=== PATIENT | female | born 1970 | race Caucasian/White ===

== ENCOUNTER 2022-09-10 08:44 | Day surgery (SDC) | payer OTHER ==
[~2022-09-10] VITALS: Ht 170.2 cm; Wt 90.1 kg
[2022-09-10] MEDS ORDERED: PRINIVIL5 MG PO (09:20)
[2022-09-10] MEDS ORDERED: ASPIRIN E.C. 8181 MG PO (09:20)
[2022-09-10] MEDS ORDERED: SAXENDA6 MG/ML SQ (09:22)
[2022-09-10] MEDS ORDERED: TYLENOL 500MG500 MG PO (09:22)
[2022-09-10 11:42] VITALS: BP 138/76; PULSE 72; TEMP 98.1
[2022-09-10] MEDS ORDERED: NORCO 325 MG-51 TAB PO (12:55)
[2022-09-10 13:30] VITALS: BP 130/64; PULSE 72; TEMP 97.6
[2022-09-10 13:45] VITALS: BP 132/70; PULSE 85
[2022-09-10 14:00] VITALS: BP 136/72; PULSE 65
--- NOTE | 2022-09-10 14:34 | NUR ---
1330-PATIENT ARRIVED VIA CART, REPORT OBTAINED FROM [facility]. PATIENT DROWSY, BUT ANSWERS QUESTIONS APPROPRIATELY. DENIES NAUSEA, RATES PAIN 4/10 TO UPPER ABDOMEN. VITAL SIGNS TAKEN, VSS. PATIENT'S SPOUSE BROUGHT TO BEDSIDE. 1335-PATIENT GIVEN PO FLUIDS AND SNACK, TOLERATING PO INTAKE WELL. DENIES NAUSEA. 1355-DISCHARGE INSTRUCTIONS REVIEWED WITH PT AND SPOUSE, QUESTIONS INVITED. PATIENT RATES PAIN 4/10. 1410-PATIENT DRESSED WITH ASSIST FROM SPOUSE. IV CATHETER SITE REMOVED, CATHETER TIP INTACT. PRESSURE HELD AND BANDAGE APPLIED. 1420-PATIENT DISCHARGED HOME TO [facility] VIA WHEELCHAIR, ACCOMPANIED BY SPOUSE. ALL PATIENT BELONGINGS WITH PT AT DISCHARGE.
[2022-09-10 15:28] VITALS: BP 131/70; PULSE 69; TEMP 97.7
== END 2022-09-10 14:20 | disposition home or self-care (01) ==
LOC: SDCO 08:44 → EDBD 11:00 → SDCO 11:00
DX: K80.10 Calculus of gallbladder with chronic cholecystitis without obstruction (principal); I10 Essential (primary) hypertension; E11.9 Type 2 diabetes mellitus without complications; Z79.899 Other long term (current) drug therapy
CPT/HCPCS: J0690; J1100; J1200; J1885; J2405; J2704; J3010; J7120